=== PATIENT | male | born 1985 ===

== ENCOUNTER 2021-02-05 21:43 | Outpatient (CLI) | payer OTHER | END 2021-02-05 23:00 | disposition home or self-care (01) | LOC: ER 21:43 → LAB 21:43 | PROVIDERS: ATTEND Obstetrics & Gynecology | DX: Z20.818 Contact with and (suspected) exposure to other bacterial communicable diseases (principal); Z20.828 Contact with and (suspected) exposure to other viral communicable diseases ==